=== PATIENT | male | born 1995 | race Caucasian/White ===

== ENCOUNTER → 2017-03-29 | Outpatient (CLI) | payer BC ==
[~2017-03-29] MED LIST: IBUP800T37 PO
--- NOTE | 2017-03-29 15:53 | RADIOLOGY IMAGING REPORT ---
FACILITY: [facility] PATIENT NAME: John Pham : 1995 MR: [id number] V: [id number] EXAM DATE: ORDERING PHYSICIAN: EDDIE HERNANDEZ TECHNOLOGIST: Location: [facility] Patient: John Pham : 1995 Visit/Account:[id number] Date of Sevice: 03/29/2017 Examination: ULTRASOUND OF THE SCROTUM AND TESTES Comparison: None available. History: Trauma 2 weeks ago. Pain. Findings: Standard ultrasound of the testicles and scrotum with color flow and spectral analysis. Right testicle: 4.8 x 2.1 x 3.4 cm. Morphologically normal right testicle with normal waveforms on Do ppler interrogation. Right epididymis: Within normal limits. Left testicle: 4.7 x 2.2 x 3.5 cm. Morphologically normal left testicle with normal waveforms on Dopp ler interrogation. Left epididymis: Within normal limits. Hydrocele: None Varicocele: None Scrotum: Negative. IMPRESSION: Negative ultrasound of the scrotum and testicles. Report Dictated By: Gerardo Roberts MD at 03/29/2017 3:47 PM Report E-Signed By: Gerardo Roberts MD at 03/29/2017 3:50 PM WSN:[id number]
== END ==
LOC: US 14:58
PROVIDERS: ATTEND Nurse Practitioner Family
DX: N50.819 Testicular pain, unspecified (principal)
CPT/HCPCS: 76870

== ENCOUNTER 2017-10-25 16:26 | Day surgery (SDC) | payer BC ==
[~2017-10-25] VITALS: Ht 177.8 cm; Wt 88.5 kg
[~2017-10-25 16:26] MED LIST changes: -DOCU100T13 PO; -OXYC-854 PO
[2017-10-25] MEDS ORDERED: FAMOTIDINE 20 MG/50 ML PREMIX IVPB ONE (16:40)
[2017-10-25] MEDS ORDERED: MIDAZOLAM 2 MG/2 ML VIAL IVP PRN (16:40)
[2017-10-25] MEDS ORDERED: LIDOCAINE/SOD BICARB 8.4% SYR ID ONE (16:40)
[2017-10-25] MEDS ORDERED: NORMOSOL R SOLN(*) 1000 ML BAG 1,000 ML IV PRN (16:40)
[2017-10-25] MEDS ORDERED: ROPIVACAINE 0.5% 20 ML VIAL ONE (16:43)
[2017-10-25 16:48] VITALS: BP 150/98
[2017-10-25] MEDS ORDERED: fentaNYL CITR 250 MCG/5 ML AMP ONE (16:51)
[2017-10-25] MEDS ORDERED: LIDOCAINE 2% IV 100 MG/5ML SYR ONE (16:52)
[2017-10-25] MEDS ORDERED: PROPOFOL EMUL(*) 10MG/ML 20 ML 20 ML ONE (16:52)
[2017-10-25] MEDS ORDERED: ERTAPENEM(*) 1 GM VIAL 1 GM in NS(*) 0.9% 100 ML ADDVANT BAG 100 ML IVPB ONE (18:00)
[2017-10-25] MEDS ORDERED: DEXAMETHASONE SOD 4 MG/ML VIAL ONE (18:09)
[2017-10-25] MEDS ORDERED: KETOROLAC 30 MG/ML VIAL ONE (18:10)
[2017-10-25] MEDS ORDERED: ONDANSETRON 4 MG/2 ML VIAL ONE (18:10)
--- NOTE | 2017-10-25 18:12 | Gen Surgery History & Physical ---
History of Present Illness Chief Complaint Abdominal pain History of Present Illness 22yo male presents with 15 hours of abdominal pain in right lower quadrant. No N/V. No diarrhea or constipation. Subjective fevers/chills. WBC 15K and CT c/ w appendicitis. No previous abdominal surgeries. He had right ACL surgery last year and had no problems from the surgery or anesthesia. History Problems: (1) S/P ACL surgery Status: Chronic Home Meds Active Scripts Ibuprofen (IBUPROFEN) 800 Mg Tablet, 1 TAB PO Q8H, #30 Prov:ROSANA CHASE DO 04/01/16 Allergies: Coded Allergies: Cephalosporins (Verified Allergy, Intermediate, RASH, 10/25/17) Patient History: FH: HTN (hypertension) FATHER FH: hypercholesterolemia MOTHER Review of Systems All Systems Reviewed/Normal: Yes, Except as Noted Gastrointestinal: Abdominal Pain Exam General Appearance: Alert, Awake, No Acute Distress, Afebrile Neuro: No Gross deficits Eyes: PERRLA GI: Other (Soft, RLQ TTP with focal peritonitis) Extremities: Warm, Perfused Assessment and Plan Problems: (1) Acute appendicitis Status: Acute Assessment & Plan: 10/25/17: Diagnosis explained to the patient and his family. I have explained the treatment options including antibiotics vs surgery and the risks/benefits of each option. I have recommended lap appy since time course of treatment and recovery is generally much quicker with recurrent appendicitis rate of close to zero. I have explained surgery to him in great detail along with the alternatives, risks, and expected recovery. His questions have been answered and he would like to proceed with surgery. Will give a dose of ertapenum to treat the appendicitis before surgery. Condition Stable. Time Spent: < 30 min Venous Thromboembolism VTE Risk Physician Assess for VTE Risk: Yes Patient's VTE Risk: Low VTE Diagnostic Test 2 Days Prior to Admit: No Antithrombotics Is Pt On Any Antithrombotics?: No Problem Qualifiers (1) Acute appendicitis: Acute appendicitis type: with localized peritonitis Qualified Codes: K35.3 - Acute appendicitis with localized peritonitis EDDIE DICKENS MD Oct 25, 2017 18:12
[2017-10-25] MEDS ORDERED: SUGAMMADEX SOD 200 MG/2 ML SDV ONE (18:15)
[2017-10-25] MEDS ORDERED: fentaNYL CITR 100 MCG/2 ML AMP ONE ×2 (18:23→19:32)
[2017-10-25] MEDS ORDERED: ACETAMINOPHEN(*)1000 MG/100 ML 100 ML IVPB ONE (18:47)
[2017-10-25] MEDS ORDERED: OXYC-854 PO (19:15)
[2017-10-25] MEDS ORDERED: DOCU100T13 PO (19:15)
--- NOTE | 2017-10-25 19:18 | Short(Outpt) Discharge Summary ---
Discharge Summary Reason for Hosp/Final Diag: (1) Acute appendicitis Status: Acute Hospital Course & Plan: 10/25/17: Diagnosis explained to the patient and his family. I have explained the treatment options including antibiotics vs surgery and the risks/benefits of each option. I have recommended lap appy since time course of treatment and recovery is generally much quicker with recurrent appendicitis rate of close to zero. I have explained surgery to him in great detail along with the alternatives, risks, and expected recovery. His questions have been answered and he would like to proceed with surgery. Will give a dose of ertapenum to treat the appendicitis before surgery. 10/25/17 (postop): Lap appy completed without problems. Pt tolerated the procedure without issues and so was d/joanna to home in good condition. Departure Discharge to: Home, Self Care Discharge Instructions Home Meds Active Scripts Docusate Sodium (DOCUSATE SODIUM) 100 Mg Tablet, 1 TAB PO BID, #30 TAB 0 Refills Prov:EDDIE DICKENS MD 10/25/17 Oxycodone Hcl/Acet 5/325 Mg (ENDOCET 5-325 TABLET) 1 Each Tablet, 1-2 TAB PO Q4H Y for PAIN, #30 TAB 0 Refills Prov:EDDIE DICKENS MD 10/25/17 Ibuprofen (IBUPROFEN) 800 Mg Tablet, 1 TAB PO Q8H, #30 Prov:ROSANA CHASE DO 04/01/16 Follow up Referrals: General Surgery - 11/10/17 @ Surgery, General with Eddie Dickens Md You have a follow up appointment scheduled with Dr. Dickens on 11/10/17, at 12:30pm. Diet: Regular Activity: No Heavy Lifting Special Instructions: You may remove the white surgical dressings on 10/27/17, then you can shower. After showering, leave the incisions open to air but leave the steristrips in place until they fall off on their own. Do not immerse the incisions for 2 weeks. Avoid any activity that involves straining or lifting more than 10 pounds for 2 weeks after surgery. Problem Qualifiers (1) Acute appendicitis: Acute appendicitis type: with localized peritonitis Qualified Codes: K35.3 - Acute appendicitis with localized peritonitis EDDIE DICKENS MD Oct 25, 2017 19:18
[2017-10-25] MEDS ORDERED: oxyCODONE/ACETAMIN 5/325MG TH 2 TAB/BOTTLE PO ONE ×2 (19:20)
--- NOTE | 2017-10-25 19:32 | Post Operative Progress Note ---
Post Operative Progress Note Date: Oct 25, 2017 Time: 19:19 Surgeon: Kirti Dictation number: [id number] Anesthesia: GETA by Dr. Merino Pre-Op Diagnosis: Acute appendicitis Post-Op Diagnosis: KAVITA Findings: C/W dx Procedure(s): Lap appy Specimen Removed:(May be N/A): Appendix Complications: None Fluids: See anesthesia record Estimated Blood Loss: Minimal Date OP Note Dictated: Oct 25, 2017 Time OP Note Dictated: 19:19 EDDIE DICKENS MD Oct 25, 2017 19:32
--- NOTE | 2017-10-25 20:01 | OPERATIVE REPORT 1 ---
EVENT DATE: October 25, 2017 SURGEON: Eric Cotto MD ANESTHESIOLOGIST: Prabhu Merino MD ANESTHESIA: General endotracheal anesthesia. PREOPERATIVE DIAGNOSIS Acute appendicitis. POSTOPERATIVE DIAGNOSIS Acute appendicitis. PROCEDURE PERFORMED Laparoscopic appendectomy. COMPLICATIONS None. CONDITION Stable. ESTIMATED BLOOD LOSS Minimal. INDICATIONS John is a 22-year-old gentleman who presented to the urgent care with right lower quadrant abdominal pain. They checked labs which revealed a white count of 15,[address] scan which revealed acute appendicitis. They then consulted me, and I had him come over to the hospital for laparoscopic appendectomy. DESCRIPTION OF PROCEDURE The patient was brought to the operating room and placed supine on the operating table. General endotracheal anesthesia was administered, and his abdomen was prepped and draped in a sterile fashion. Timeout was completed. I injected the infraumbilical skin with 0.5% ropivacaine plain. I made a curvilinear smiley face-type incision in the infraumbilical rim and dissected down through the dermis and subcutaneous fat. I identified the midline fascia and made a vertical incision in the midline fascia and then bluntly entered the peritoneal cavity with my finger. I placed two interrupted 0 Vicryl sutures transversely through the vertical fascial defect and inserted a 12 mm Merissa- type port through this wound and secured it in place with sutures. I then insufflated the abdomen to a pressure of 15 mmHg and inserted a 5 mm, 30-degree angled scope through this port. Next, under direct visualization, I placed a 5 mm suprapubic port and a left lower quadrant 5 mm port, and these were placed under direct visualization. Incidentally, the patient did have evidence of a left inguinal hernia. Pictures were taken of this and the information provided to the patient and his family. I turned my attention to the right lower quadrant. I had the patient placed in Trendelenburg and planed towards his left to remove the viscera from the right lower quadrant. I identified immediately the appendix which was sticking anteriorly. It was quite inflamed and purulent, but not perforated. There was no abscess or fluid. I then grasped the mesoappendix and divided this with a Harmonic scalpel down to the base of the appendix. I then divided the base of the appendix with an Endo BUD stapler with a blue load. The appendix was placed in a surgical specimen retrieval bag and removed from the abdomen through the umbilical port site. The right lower quadrant was irrigated and dried, and there was some oozing from some of the divided tissue. This was controlled with clips. I then inspected the staple line which was flush with the cecum and no bleeding. It did not interfere with the ileocecal valve. I then placed some Gino hemostatic powder into the right lower quadrant where it had been oozing, then had the bed flattened, and placed the omentum overlying the cecum and the staple line. I then removed the 5 mm ports and desufflated the abdomen. I removed the camera, followed by the umbilical port, and then placed another 0 Vicryl [id number] suture through the fascial defect in between the first two preplaced sutures. I then tied all three of these down with good reapproximation of the fascial edges. I then closed the skin at each incision with 4-0 Monocryl subcuticular suture. The skin was cleaned and dried, and Steri-Strips were applied, followed by sterile surgical dressings. The patient was awakened, extubated in the operating room, and transported to the recovery room in stable condition having tolerated the procedure without any apparent problems. VINICIO
== END 2017-10-25 21:18 | disposition home or self-care (01) ==
LOC: OR 16:26
PROVIDERS: ATTEND Surgery
DX: K35.80 Unspecified acute appendicitis (principal)
CPT/HCPCS: 44970; 88304; J0131; J1100; J1335; J2001; J2405; J2704; J2795; J3010; J3490; J7050; J1885

== ENCOUNTER → 2017-10-25 | Outpatient (CLI) | payer BC ==
[~2017-10-25] MED LIST changes: +DOCU100T13 PO; +IOPAMIDOL 76% 75 ML INFUS BTL 75 ML ONE; +OXYC-854 PO
--- NOTE | 2017-10-25 16:15 | RADIOLOGY IMAGING REPORT ---
FACILITY: [facility] [place] PATIENT NAME: John Pham : 1995 MR: [id number] V: [id number] EXAM DATE: ORDERING PHYSICIAN: EDDIE HERNANDEZ TECHNOLOGIST: Location: [facility] Patient: John Pham : 1995 Visit/Account:[id number] Date of Sevice: 10/25/2017 ABDOMEN/PELVIS WITH CONTRAST HISTORY: Right lower quadrant pain started 3:00 AM, progressing TECHNIQUE: Following administration of IV contrast contiguous axial images acquired through the abdom en/pelvis. Coronal and sagittal reformatting also performed. Dose Lowering Technique One of the following dose optimization techniques was utilized in the performance of this exam: Autom ated exposure control; adjustment of the mA and/or kV according to the patient's size; or use of an i terative reconstruction technique. Specific details can be referenced in the facility's radiology C T exam operational policy. CONTRAST: 75 mL Isovue-370 COMPARISON: None. FINDINGS: Visualized lung bases: Negative. Hepatobiliary: Negative. Spleen: Negative. Adrenals: Negative. Pancreas: Negative. Kidneys ureters or bladder: Negative. Genitalia: Negative. GI: The appendix is markedly dilated and fluid-filled measuring up to 1.25 cm in diameter with enhan cement of the wall and a large amount of surrounding edema in the periappendiceal fat. There are mul tiple prominent lymph nodes also noted in the right lower quadrant. Findings are consistent with acu te appendicitis although there is no evidence of free perforation or periappendiceal abscess. Vessels/spaces/nodes: There are multiple shotty mesenteric and retroperitoneal lymph nodes. Additio fe there are enlarged lymph nodes in the right lower quadrant. A it sales representative lymph node measur es 2.5 x 1.2 x 1.2 cm Bones/soft tissues: There Is a trace amount of free pelvic fluid Additional findings: None pertinent. IMPRESSION: Findings are consistent with acute appendicitis with no evidence of free perforation or periappendice al abscess Results were called to EDDIE HERNANDEZ at 10/25/2017 4:08 PM. Report Dictated By: Cammy Monsalve MD at 10/25/2017 3:58 PM Report E-Signed By: Cammy Monsalve MD at 10/25/2017 4:10 PM WSN:[id number]
== END ==
LOC: CT 15:16
PROVIDERS: ATTEND Nurse Practitioner Family
DX: K35.80 Unspecified acute appendicitis (principal)
CPT/HCPCS: 74177; Q9967

== ENCOUNTER → 2017-10-25 | Outpatient (REF) | payer BC ==
[~2017-10-25] MED LIST changes: -IOPAMIDOL 76% 75 ML INFUS BTL 75 ML ONE
[2017-10-25 14:24] LABS: PLATELET COUNT, AUTOMATED 359 K/uL (150-450)
== END ==
PROVIDERS: ATTEND Nurse Practitioner Family
DX: R10.9 Unspecified abdominal pain (principal)
CPT/HCPCS: 82040; 82247; 82310; 82374; 82435; 82565; 82947; 84075; 84132; 84155; 84295; 84450; 84460; 84520; 85025